=== PATIENT | male | born 1955 | race Caucasian/White ===

== ENCOUNTER 2017-10-22 11:01 | Emergency (ER) | payer BC ==
[~2017-10-22] VITALS: Ht 177.8 cm; Wt 141.0 kg
[~2017-10-22 11:01] MED LIST changes: -XRL15 PO
[2017-10-22 11:03] VITALS: TEMP 36.5; Ht 177.8 cm; Wt 141.0 kg
--- NOTE | 2017-10-22 11:44 | EMERGENCY ROOM VISIT NOTE ---
History First contact with patient: 11:06 Chief Complaint: LEG PAIN,LEG INJURY Stated Complaint: PAIN LOWER LEFT LEG,BLOOD CLOT History of Present Illness The patient is a 62 year old male who presents to the Emergency Room with complaints of left posterior knee and calf pain times several weeks. On July 14, the patient had a left total knee replacement surgery performed. He states after that time, he was on Xarelto for approximately 1 week. He was healing well for several weeks, however he states a few weeks ago, he began experiencing increased pain in the posterior knee and calf, so contacted Dr. Bearden today for follow-up. At the office, the patient did have x-rays performed, which were negative for any problems related to the knee or the hardware. The patient was then sent for an ultrasound of the left lower extremity to rule out DVT. This was positive, and the patient was sent to the emergency department for further evaluation. The patient does report a history of DVT in the right leg 2, several years after a fracture in that right leg. He denies any chest pain or dyspnea. He denies any cough or coughing up sputum or blood. He states he has not been ill. He is not on any hormone therapy, and states he tries to live a very active life. He is having difficulty walking up and down the stairs over the past few weeks, and is concerned because he was previously able to do this several weeks after surgery. Review of Systems A complete 10 point review of systems was reviewed with the patient with pertinent positives and negatives as per history of present illness. All else were negative. Past Medical/Surgical History Medical Problems: (1) Accident Nos (2) DVT (deep venous thrombosis) (3) History of tinnitus (4) Kidney stones (5) Left knee DJD (6) Melanoma (7) Popliteal Synovial Cyst (8) Small bowel obstruction Family History Cancer Heart disease Hypertension Social History Smoking Status: Never Smoker Alcohol Use: occasionally Drug Use: none Marital Status: Housing Status: lives with family Occupation Status: employed Current/Historical Medications Scheduled Rivaroxaban (Xarelto), 1 TAB PO BID Physical Exam Vital Signs Date Time Temp Pulse Resp B/P (MAP) Pulse Ox O2 Delivery O2 Flow Rate FiO2 10/22/17 13:00 77 18 131/90 95 Room Air 10/22/17 11:03 36.5 81 16 162/91 96 Room Air Physical Exam VITALS: Vitals are noted on the nurse's note and reviewed by myself. Vital signs stable. GENERAL: This is a 62-year-old obese white male, in no acute distress, nondiaphoretic, well-developed well-nourished. SKIN: The skin was without rashes, erythema, edema, or bruising. There is no tenting of the skin. Capillary reflex less than 2 seconds. HEAD: Normocephalic atraumatic. NECK: Supple without nuchal rigidity. No lymphadenopathy. No thyromegaly. Cervical spine is nontender. No JVD. No bruits on auscultation. HEART: Regular rate and rhythm without murmurs gallops or rubs. LUNGS: Clear to auscultation bilaterally without wheezes, rales or rhonchi. No dullness to percussion. No retractions or accessory muscle use. ABDOMEN: Positive bowel sounds x 4. Normal tympanic percussion. Soft, nontender, without masses or organomegaly. Bob sign negative. No guarding or rebound tenderness. MUSCULOSKELETAL: There is mild tenderness on palpation of the left proximal calf and posterior knee. No muscle atrophy, erythema, or edema noted. Full range of motion without joint tenderness in all extremities. No palpable cord. Normal gait. Strength 5/5 throughout. NEURO: Patient was alert and oriented to person place and time. Normal sensation to light and sharp touch. Deep tendon reflexes 2+ throughout. No focal neurological deficits. Medical Decision & Procedures ER Provider Diagnostic Interpretation: [~ rep ct add3]] LEFT LOWER EXTREMITY VENOUS DOPPLER HISTORY: Left leg pain and swelling. COMPARISON STUDY: None. FINDINGS: The left common femoral and superficial femoral veins are patent. There is occlusive thrombus seen within the left popliteal and peroneal veins. The anterior tibial and posterior tibial veins are patent. IMPRESSION: Acute DVT within the left popliteal and peroneal veins. Laboratory Results 10/22/17 11:45 Red Blood Count 4.75, Mean Corpuscular Volume 89.1, Mean Corpuscular Hemoglobin 30.1, Mean Corpuscular Hemoglobin Concent 33.8, Mean Platelet Volume 9.8, Neutrophils (%) (Auto) 68.9, Lymphocytes (%) (Auto) 20.3, Monocytes (%) (Auto) 5.7, Eosinophils (%) (Auto) 4.4, Basophils (%) (Auto) 0.4, Neutrophils # (Auto) 4.99, Lymphocytes # (Auto) 1.47, Monocytes # (Auto) 0.41, Eosinophils # (Auto) 0.32, Basophils # (Auto) 0.03 10/22/17 11:45 Test 10/22/17 11:45 White Blood Count 7.24 K/uL (4.8-10.8) Red Blood Count 4.75 M/uL (4.7-6.1) Hemoglobin 14.3 g/dL (14.0-18.0) Hematocrit 42.3 % (42-52) Mean Corpuscular Volume 89.1 fL (80-100) Mean Corpuscular Hemoglobin 30.1 pg (25-34) Mean Corpuscular Hemoglobin Concent 33.8 g/dl (32-36) Platelet Count 158 K/uL (130-400) Mean Platelet Volume 9.8 fL (7.4-10.4) Neutrophils (%) (Auto) 68.9 % Lymphocytes (%) (Auto) 20.3 % Monocytes (%) (Auto) 5.7 % Eosinophils (%) (Auto) 4.4 % Basophils (%) (Auto) 0.4 % Neutrophils # (Auto) 4.99 K/uL (1.4-6.5) Lymphocytes # (Auto) 1.47 K/uL (1.2-3.4) Monocytes # (Auto) 0.41 K/uL (0.11-0.59) Eosinophils # (Auto) 0.32 K/uL (0-0.5) Basophils # (Auto) 0.03 K/uL (0-0.2) RDW Standard Deviation 40.9 fL (36.4-46.3) RDW Coefficient of Variation 12.6 % (11.5-14.5) Immature Granulocyte % (Auto) 0.3 % Immature Granulocyte # (Auto) 0.02 K/uL (0.00-0.02) Prothrombin Time 10.5 SECONDS (9.0-12.0) Prothromb Time International Ratio 1.0 (0.9-1.1) Activated Partial Thromboplast Time 25.5 SECONDS (21.0-31.0) Partial Thromboplastin Ratio 1.0 Anion Gap 6.0 mmol/L (3-11) Est Creatinine Clear Calc Drug Dose 110.8 ml/min Estimated GFR () 95.4 Estimated GFR (Non- 82.3 BUN/Creatinine Ratio 15.7 (10-20) Calcium Level 8.8 mg/dl (8.5-10.1) Total Bilirubin 0.3 mg/dl (0.2-1) Aspartate Amino Transf (AST/SGOT) 14 U/L (15-37) Alanine Aminotransferase (ALT/SGPT) 21 U/L (12-78) Alkaline Phosphatase 66 U/L (45-117) Total Protein 6.7 gm/dl (6.4-8.2) Albumin 3.3 gm/dl (3.4-5.0) Globulin 3.4 gm/dl (2.5-4.0) Albumin/Globulin Ratio 1.0 (0.9-2) Folate 19.54 ng/mL (>5.38) ED Course The patient was seen and evaluated as above. Ultrasound report reviewed. Labs ordered and obtained. These are reviewed. I discussed case with Dr. Roberson. I did contact Dr. Bearden regarding the DVT. He was aware. Discharge instructions reviewed, and patient was discharged home in good condition. Medical Decision This is a 62-year-old male patient presents to the emergency department today complaining of left knee and proximal calf discomfort for several weeks. He went to see his orthopedic surgeon, who sent him for outpatient ultrasound, which did show DVT within the popliteal and peroneal veins. CBC was without leukocytosis, anemia, thrombocytopenia. CMP did not reveal any significant renal, hepatic, or electrolyte abnormalities. Folate was normal. PT, INR were normal. The rest of the coagulation studies are still pending, and are to be followed up outpatient with the patient's primary care provider. The patient had been on Xarelto for 1 week post surgery, and states he tolerated it well. He will be restarted on Xarelto following the DVT protocol, and I did discuss this with the patient. Prescription for Xarelto was sent to the pharmacy, and discharge instructions were reviewed. All questions were answered to the patient and his 's satisfaction. Etiologies such as DVT, joint effusion, infection, trauma, muscular, lymphedema , idiopathic, CHF, as well as others were entertained. Medication Reconcilliation Current Medication List: was personally reviewed by me Blood Pressure Screening Patient's blood pressure: Normal blood pressure Impression Primary Impression: Deep vein thrombosis Departure Information Dispostion Home / Self-Care Condition GOOD Prescriptions Rivaroxaban (Xarelto) 15 Mg Tab 1 TAB PO BID for 21 Days, #42 TABS Prov: Faustina Tracy PA-C 10/22/17 Referrals Jaden Samuels MD (PCP) Patient Instructions DVT Dc, ED DVT, [facility] Additional Instructions He was seen in the emergency department today for DVT (deep venous thrombosis). Please read handouts provided to you. As discussed, I suspect this is related to your surgery and/or hardware in the knee. You were given a prescription for Xarelto. This is to be taken 15 mg twice daily for 21 days. You should take this medication with a meal. After the first 21 days, you should switch to taking Xarelto 20 mg once daily. This should be taken until directed otherwise by your primary care provider. Please follow-up with your primary care provider regarding results of the coagulation workup here in the emergency department. You may need to be on anticoagulation therapy indefinitely. Return to the emergency department immediately for any difficulty breathing, chest pain, worsening redness, swelling, or pain in the calf or knee, or other concerning symptoms. Problem Qualifiers Primary Impression: Deep vein thrombosis DVT location: lower extremity Affected thrombotic vein of extremity: popliteal Chronicity: acute Laterality: left Qualified Codes: I82.432 - Acute embolism and thrombosis of left popliteal vein
--- NOTE | 2017-10-22 11:50 | EMERGENCY ROOM VISIT NOTE ---
ED Visit Note First contact with patient: 11:06 The patient was seen and examined with Faustina Tracy PA-C. I agree with the history, physical and findings. Please see the note for disposition and details.
[2017-10-22 12:24] LABS: BASO % 0.4 %; BASO ABS # 0.03 K/uL (0-0.2); EOS % 4.4 %; EOS ABS # 0.32 K/uL (0-0.5); HEMATOCRIT 42.3 % (42-52); HEMOGLOBIN 14.3 g/dL (14.0-18.0); IG# 0.02 K/uL (0.00-0.02); LYMPH % 20.3 %; LYMPH ABS # 1.47 K/uL (1.2-3.4); MEAN CELL VOLUME 89.1 fL (80-100); MEAN CORPUSCULAR HEMOGLOBIN 30.1 pg (25-34); MEAN CORPUSCULAR HGB CONC 33.8 g/dl (32-36); MEAN PLATELET VOLUME 9.8 fL (7.4-10.4); MONO % 5.7 %; MONO ABS # 0.41 K/uL (0.11-0.59); NEUT % 68.9 %; NEUT ABS # 4.99 K/uL (1.4-6.5); PLATELET COUNT 158 K/uL (130-400); RED CELL DISTRIBUTION WIDTH CV 12.6 % (11.5-14.5); RED CELL DISTRIBUTION WIDTH SD 40.9 fL (36.4-46.3); WHITE BLOOD COUNT 7.24 K/uL (4.8-10.8)
[2017-10-22 12:32] LABS: PTT PATIENT 25.5 SECONDS (21.0-31.0)
[2017-10-22 12:43] LABS: ALBUMIN 3.3 gm/dl (3.4-5.0); CALCIUM 8.8 mg/dl (8.5-10.1); CREATININE 0.98 mg/dl (0.60-1.40); POTASSIUM 3.8 mmol/L (3.5-5.1)
[2017-10-22 12:45] LABS: TOTAL PROTEIN 6.7 gm/dl (6.4-8.2)
[2017-10-22 13:00] VITALS: BP 131/90; PULSE 77; O2SAT 95
[2017-10-22] MEDS ORDERED: XRL15 PO (13:06)
== END 2017-10-22 13:14 | disposition home or self-care (01) ==
LOC: C.EDB 11:02 → C.EDC 13:14
DX: I82.432 Acute embolism and thrombosis of left popliteal vein (principal); Z82.49 Family history of ischemic heart disease and other diseases of the circulatory system

== ENCOUNTER → 2017-10-22 | Outpatient (CLI) | payer BC ==
[~2017-10-22] MED LIST: ACET-24 PO; CLB200 PO; ONDA8TAB6 PO; RXC5 PO; SENN1TAB80 PO; XRL10 PO; XRL15 PO; eye gtts OPB
--- NOTE | 2017-10-22 10:21 | DIAGNOSTIC IMAGING REPORT ---
LEFT LOWER EXTREMITY VENOUS DOPPLER HISTORY: Left leg pain and swelling. COMPARISON STUDY: None. FINDINGS: The left common femoral and superficial femoral veins are patent. There is occlusive thrombus seen within the left popliteal and peroneal veins. The anterior tibial and posterior tibial veins are patent. IMPRESSION: Acute DVT within the left popliteal and peroneal veins. Electronically signed by: Joe Crawford M.D. 10/22/2017 10:19 AM Dictated Date/Time: 10/22/2017 10:18 AM
== END | disposition home or self-care (01) ==
LOC: C.ULTRBC 09:50
DX: Z96.652 Presence of left artificial knee joint (principal); I82.432 Acute embolism and thrombosis of left popliteal vein; I82.492 Acute embolism and thrombosis of other specified deep vein of left lower extremity

== ENCOUNTER → 2017-11-18 | Outpatient (CLI) | payer BC ==
[~2017-11-18] MED LIST changes: -ACET-24 PO; -CLB200 PO; -ONDA8TAB6 PO; -RXC5 PO; -SENN1TAB80 PO; -XRL10 PO; +XRL15 PO; -eye gtts OPB
--- NOTE | 2017-11-18 08:56 | DIAGNOSTIC IMAGING REPORT ---
L VENOUS DOPP LOWER EXT UNILAT CLINICAL HISTORY: LEFT LEG DVT F/U pain. Edema. TECHNIQUE: Venous Doppler COMPARISON STUDY: 10/22/2017 FINDINGS: Occlusive thrombus within the proximal and mid left peroneal vein. Nonocclusive thrombus within the popliteal. No evidence for significant progression of the geographic distribution. IMPRESSION: Findings consistent with acute deep venous thrombosis essentially unchanged from the prior study. Overall distribution of thrombus is unchanged in terms of extent. No evidence for progression. The above report was generated using voice recognition software. It may contain grammatical, syntax or spelling errors. Electronically signed by: Kayode Garcia M.D. 11/18/2017 8:54 AM Dictated Date/Time: 11/18/2017 8:53 AM
== END | disposition home or self-care (01) ==
LOC: C.ULTRBC 08:00
PROVIDERS: ATTEND Family Medicine
DX: I82.432 Acute embolism and thrombosis of left popliteal vein (principal)